=== PATIENT | male | born 1950 | race Caucasian/White ===

== ENCOUNTER 2020-01-27 12:28 | Inpatient (IN) ==
[2020-01-27] MEDS ORDERED: 0.9 % Sodium Chloride 1,000 ML IVC ONE ×2 (12:43→15:42)
[2020-01-27] MEDS ORDERED: Piperacillin/Tazobactam 3.375 GM in 0.9 % Sodium Chloride Mini Bag 100 ML IVPB ONE (12:43)
[2020-01-27] MEDS ORDERED: Isovue-370 500 ML BOTTLE IVP ONE (12:44)
[2020-01-27] MEDS ORDERED: Vancomycin 1,750 MG/517.5 ML IV.SOLN IVPB ONE (13:00)
[2020-01-27 13:21] LABS: Basophils % 0.2 %; Eosinophils # 0.1 K/mcL (0.0-0.6); Eosinophils % 0.3 %; Hematocrit 35.4 % (37.5-50.1); Hemoglobin 11.6 g/dL (12.9-16.9); Immature Granulocytes % 0.9 % (0-4); Lymphocytes # 0.9 K/mcL (0.6-4.6); Lymphocytes % 6.3 %; Mean Corpuscular HGB Conc 32.8 g/dL (31.6-35.5); Mean Corpuscular Hemoglobin 28.1 pg (28.0-33.3); Mean Corpuscular Volume 85.7 fL (83.0-100.0); Mean Platelet Volume 9.4 fL (9.4-12.4); Monocytes # 0.9 K/mcL (0.0-1.3); Monocytes % 6.1 %; Neutrophils # 12.5 K/mcL (1.6-8.9); Platelet Count 321 K/mcL (140-400); Red Blood Count 4.13 M/mcL (4.19-5.50); Red Cell Distribution Width 12.4 % (11.5-14.5); Segmented Neutrophils % 86.2 %; White Blood Count 14.5 K/mcL (4.3-11.1)
[2020-01-27 14:02] LABS: INR 1.4; Prothrombin Time 15.7 Seconds (9.4-12.1)
[2020-01-27 14:04] LABS: Activated Partial Thrombo Time 29.1 Seconds (26.0-36.0)
[2020-01-27 14:21] LABS: BUN/Creatinine Ratio 29 (6-26); Blood Urea Nitrogen 28 mg/dL (8-23); Calcium 9.8 mg/dL (8.6-10.3); Carbon Dioxide 26 mEq/L (23-29); Chloride 98 mEq/L (98-107); Glucose 149 mg/dL (70-105); Osmolality,Calculated 284 (280-300); Potassium 3.8 mEq/L (3.5-5.1); Sodium 133 mEq/L (136-145); eGFR For African Americans > 60 (> 60); eGFR For Non-African Americans > 60 (> 60)
[2020-01-27 15:21] LABS: C-Reactive Protein 292 mg/L (Less than 10)
[2020-01-27] MEDS ORDERED: Ondansetron 4 MG/2 ML VIAL IVP ONE ×2 (15:43→18:54)
[2020-01-27] MEDS ORDERED: Lidocaine -MPF 2% 2 ML VIAL ONE (17:04)
[2020-01-27] MEDS ORDERED: *HR* Succinylcholine 200 MG/10 ML VIAL IVP ONE (17:04)
[2020-01-27] MEDS ORDERED: *HR* FentaNYL (PF) 100 MCG/2 ML VIAL ONE ×3 (17:05→19:26)
[2020-01-27] MEDS ORDERED: *HR* Propofol 200 MG/20 ML VIAL IVP ONE (17:06)
[2020-01-27] MEDS ORDERED: *HR* Rocuronium Bromide 50 MG/5 ML VIAL ONE (17:07)
[2020-01-27] MEDS ORDERED: Ondansetron 4 MG/2 ML VIAL ONE ×2 (17:07→18:37)
[2020-01-27] MEDS ORDERED: Dexamethasone 4 MG/ML VIAL ONE (17:07)
[2020-01-27] MEDS ORDERED: *HR* Midazolam HCl 2 MG/2 ML VIAL ONE (17:48)
[2020-01-27] MEDS ORDERED: *HR* HYDROMORPHONE 2 MG/ML VIAL ONE (17:59)
[2020-01-27] MEDS ORDERED: Acetaminophen IV 1,000 MG/100 ML BAG ONE (18:21)
[2020-01-27] MEDS ORDERED: *HR* FentaNYL (PF) 100 MCG/2 ML VIAL IVP PRN (18:54)
[2020-01-27] MEDS ORDERED: *HR* Promethazine 25 MG/ML VIAL IVP PRN (18:54)
[2020-01-27] MEDS ORDERED: *HR* OxyCODONE Immed Rel 5 MG TABLET PO PRN ×2 (18:54→20:15)
[2020-01-27] MEDS ORDERED: *HR* Labetalol 20 MG/4 ML SYRINGE IVP ONE ×3 (18:55→20:43)
[2020-01-27] MEDS: *HR* Labetalol 20 MG/4 ML SYRINGE IVP PRN ×2 (18:57→19:12)
[2020-01-27] MEDS ORDERED: *HR* HYDROcodone/Acet 5/325 mg TABLET PO PRN (20:15)
[2020-01-27] MEDS ORDERED: Acetaminophen 325 MG TABLET PO PRN (20:51)
[2020-01-27] MEDS ORDERED: Vancomycin 1,750 MG in 0.9 % Sodium Chloride 250 ML IVPB SCH (21:00)
[2020-01-27] MEDS ORDERED: *HR* Labetalol 20 MG/4 ML SYRINGE IVP PRN (21:05)
[2020-01-27] MEDS ORDERED: cloNIDine HCL 0.1 MG TABLET ONE ×2 (22:42→22:43)
[2020-01-27] MEDS: cloNIDine HCL 0.1 MG TABLET PO SCH (22:43)
[2020-01-27] MEDS: *HR* OxyCODONE Immed Rel 5 MG TABLET PO PRN (23:02)
[2020-01-28] MEDS: Piperacillin/Tazobactam 3.375 GM in 0.9 % Sodium Chloride Mini Bag 100 ML IVPB SCH ×2 (00:19→10:09)
[2020-01-28] MEDS: Vancomycin 1,500 MG/265 ML IV.SOLN IVPB SCH ×2 (02:13→15:53)
[2020-01-28] MEDS: amLODIPine 5 MG TABLET PO SCH ×2 (02:47→10:09)
[2020-01-28] MEDS: *HR* OxyCODONE Immed Rel 5 MG TABLET PO PRN ×4 (03:42→19:01)
[2020-01-28] MEDS: *HR* Enoxaparin 40 MG/0.4 ML SYRINGE SQ SCH (05:22)
[2020-01-28 07:02] LABS: Hematocrit 36.3 % (37.5-50.1); Hemoglobin 11.7 g/dL (12.9-16.9); Mean Corpuscular HGB Conc 32.2 g/dL (31.6-35.5); Mean Corpuscular Hemoglobin 28.9 pg (28.0-33.3); Mean Corpuscular Volume 89.6 fL (83.0-100.0); Mean Platelet Volume 9.8 fL (9.4-12.4); Platelet Count 303 K/mcL (140-400); Red Blood Count 4.05 M/mcL (4.19-5.50); Red Cell Distribution Width 12.3 % (11.5-14.5)
[2020-01-28 07:25] LABS: BUN/Creatinine Ratio 25 (6-26); Blood Urea Nitrogen 27 mg/dL (8-23); Calcium 9.1 mg/dL (8.6-10.3); Carbon Dioxide 24 mEq/L (23-29); Chloride 99 mEq/L (98-107); Glucose 243 mg/dL (70-105); Osmolality,Calculated 289 (280-300); Potassium 4.2 mEq/L (3.5-5.1); Sodium 133 mEq/L (136-145); eGFR For African Americans > 60 (> 60); eGFR For Non-African Americans > 60 (> 60)
[2020-01-28] MEDS ORDERED: amLODIPine 5 MG TABLET PO SCH (09:00)
[2020-01-28] MEDS ORDERED: hydrALAZINE 25 MG TABLET PO SCH (09:00)
[2020-01-28] MEDS ORDERED: Furosemide 20 MG TABLET PO SCH (09:00)
[2020-01-28] MEDS: Gabapentin 300 MG CAPSULE PO SCH (10:05)
[2020-01-28] MEDS: Aspirin Enteric Coated 81 MG Tablet PO SCH (10:06)
[2020-01-28] MEDS: cloNIDine HCL 0.1 MG TABLET PO SCH ×2 (10:07→19:59)
[2020-01-28] MEDS: hydroCHLOROthiazide 25 MG TABLET PO SCH (10:07)
[2020-01-28 13:58] LABS: Acinetobacter baumannii by PCR Not Detected (Not Detect); Enterobacteriaceae by PCR Not Detected (Not Detect); Enterococcus by PCR Not Detected (Not Detect); Staphylococcus aureus by PCR DETECTED (Not Detect); Staphylococcus by PCR Not Detected (Not Detect); Streptococcus agalactiae(B)PCR Not Detected (Not Detect); Streptococcus by PCR Not Detected (Not Detect); Streptococcus pneumoniae PCR Not Detected (Not Detect); Streptococcus pyogenes (A) PCR Not Detected (Not Detect); blaKPC Carbapenem-Resist Gene Not Detected (Not Detect); mecA Methicillin-Resist Gene Not Detected (Not Detect); vanA/B Vancomycin-Resist Genes Not Detected (Not Detect)
[2020-01-28 13:59] LABS: Candida albicans by PCR Not Detected (Not Detect); Candida glabrata by PCR Not Detected (Not Detect); Candida krusei by PCR Not Detected (Not Detect); Candida parapsilosis by PCR Not Detected (Not Detect); Candida tropicalis by PCR Not Detected (Not Detect); Enterobacter cloacae Cmplx PCR Not Detected (Not Detect); Escherichia coli by PCR Not Detected (Not Detect); Klebsiella oxytoca by PCR Not Detected (Not Detect); Klebsiella pneumoniae by PCR Not Detected (Not Detect); Proteus by PCR Not Detected (Not Detect); Pseudomonas aeruginosa by PCR Not Detected (Not Detect); Serratia marcescens by PCR Not Detected (Not Detect)
[2020-01-28] MEDS: hydrALAZINE 25 MG TABLET PO SCH ×2 (14:49→20:00)
[2020-01-29] MEDS: *HR* OxyCODONE Immed Rel 5 MG TABLET PO PRN ×5 (00:19→21:19)
[2020-01-29 02:05] LABS: Basophils % 0.2 %; Eosinophils # 0.2 K/mcL (0.0-0.6); Eosinophils % 1.9 %; Hematocrit 34.1 % (37.5-50.1); Hemoglobin 10.7 g/dL (12.9-16.9); Immature Granulocytes % 0.6 % (0-4); Lymphocytes # 1.4 K/mcL (0.6-4.6); Lymphocytes % 10.6 %; Mean Corpuscular HGB Conc 31.4 g/dL (31.6-35.5); Mean Corpuscular Hemoglobin 27.7 pg (28.0-33.3); Mean Corpuscular Volume 88.3 fL (83.0-100.0); Mean Platelet Volume 9.7 fL (9.4-12.4); Monocytes # 0.8 K/mcL (0.0-1.3); Monocytes % 6.2 %; Neutrophils # 10.4 K/mcL (1.6-8.9); Platelet Count 323 K/mcL (140-400); Red Blood Count 3.86 M/mcL (4.19-5.50); Red Cell Distribution Width 12.4 % (11.5-14.5); Segmented Neutrophils % 80.5 %; White Blood Count 12.9 K/mcL (4.3-11.1)
[2020-01-29 02:23] LABS: BUN/Creatinine Ratio 34 (6-26); Blood Urea Nitrogen 34 mg/dL (8-23); Calcium 9.1 mg/dL (8.6-10.3); Carbon Dioxide 27 mEq/L (23-29); Chloride 101 mEq/L (98-107); Glucose 134 mg/dL (70-105); Osmolality,Calculated 290 (280-300); Potassium 3.9 mEq/L (3.5-5.1); Sodium 135 mEq/L (136-145); eGFR For African Americans > 60 (> 60); eGFR For Non-African Americans > 60 (> 60)
[2020-01-29 03:06] LABS: Vancomycin,Trough 14 mcg/mL (5-10)
[2020-01-29] MEDS: Vancomycin 1,500 MG/265 ML IV.SOLN IVPB SCH ×2 (03:49→16:57)
[2020-01-29] MEDS: *HR* Enoxaparin 40 MG/0.4 ML SYRINGE SQ SCH (05:17)
[2020-01-29] MEDS ORDERED: UBIDECARENONE PO SCH (09:00)
[2020-01-29] MEDS ORDERED: Aspirin Enteric Coated 81 MG Tablet PO SCH (09:00)
[2020-01-29] MEDS: hydroCHLOROthiazide 25 MG TABLET PO SCH (09:50)
[2020-01-29] MEDS: cloNIDine HCL 0.1 MG TABLET PO SCH ×2 (09:50→21:18)
[2020-01-29] MEDS: Aspirin Enteric Coated 81 MG Tablet PO SCH (09:50)
[2020-01-29] MEDS: Spironolactone 25 MG TABLET PO SCH (09:51)
[2020-01-29] MEDS: amLODIPine 5 MG TABLET PO SCH (09:51)
[2020-01-29] MEDS: Loratadine 10 MG TABLET PO SCH (09:51)
[2020-01-29] MEDS: Gabapentin 300 MG CAPSULE PO SCH (09:51)
[2020-01-29] MEDS: hydrALAZINE 25 MG TABLET PO SCH ×3 (10:03→21:27)
[2020-01-29] MEDS ORDERED: *HR* FentaNYL (PF) 100 MCG/2 ML VIAL IVP ONE (10:10)
[2020-01-29] MEDS ORDERED: *HR* FentaNYL (PF) 100 MCG/2 ML VIAL IVP PRN (14:00)
[2020-01-29] MEDS ORDERED: *HR* Labetalol 20 MG/4 ML SYRINGE IVP PRN (14:00)
[2020-01-29 15:39] LABS: Creatine Kinase 110 Units/L (30-223)
[2020-01-29] MEDS ORDERED: CeFAZolin 2 GM/120 ML BAG IVPB SCH (16:00)
[2020-01-29 16:55] LABS: C-Reactive Protein 179 mg/L (Less than 10)
[2020-01-29 16:55] LABS: Basophils % 0.2 %; Eosinophils # 0.3 K/mcL (0.0-0.6); Eosinophils % 2.4 %; Hematocrit 37.9 % (37.5-50.1); Immature Granulocytes % 0.4 % (0-4); Lymphocytes # 0.9 K/mcL (0.6-4.6); Lymphocytes % 7.7 %; Mean Corpuscular HGB Conc 31.7 g/dL (31.6-35.5); Mean Corpuscular Hemoglobin 27.8 pg (28.0-33.3); Mean Corpuscular Volume 87.7 fL (83.0-100.0); Mean Platelet Volume 9.6 fL (9.4-12.4); Monocytes # 0.8 K/mcL (0.0-1.3); Monocytes % 7.3 %; Neutrophils # 9.3 K/mcL (1.6-8.9); Platelet Count 369 K/mcL (140-400); Red Blood Count 4.32 M/mcL (4.19-5.50); Red Cell Distribution Width 12.4 % (11.5-14.5); White Blood Count 11.4 K/mcL (4.3-11.1)
[2020-01-29] MEDS: Clindamycin 600 MG/50 ML 600 MG/50 ML IV.SOLN IVPB SCH (16:57)
[2020-01-29] MEDS: Piperacillin/Tazobactam 3.375 GM in 0.9 % Sodium Chloride Mini Bag 100 ML IVPB SCH (16:57)
[2020-01-30] MEDS: *HR* Meperidine 25 MG/ML SYRINGE IVP PRN ×2 (00:44→04:53)
[2020-01-30] MEDS: Piperacillin/Tazobactam 3.375 GM in 0.9 % Sodium Chloride Mini Bag 100 ML IVPB SCH ×4 (00:45→23:40)
[2020-01-30] MEDS: Clindamycin 600 MG/50 ML 600 MG/50 ML IV.SOLN IVPB SCH ×4 (00:45→23:41)
[2020-01-30] MEDS: *HR* OxyCODONE Immed Rel 5 MG TABLET PO PRN ×4 (02:13→19:59)
[2020-01-30] MEDS: Vancomycin 1,500 MG/265 ML IV.SOLN IVPB SCH ×2 (04:51→16:02)
[2020-01-30] MEDS: *HR* Enoxaparin 40 MG/0.4 ML SYRINGE SQ SCH (04:55)
[2020-01-30 06:04] LABS: Basophils % 0.3 %; Eosinophils # 0.2 K/mcL (0.0-0.6); Eosinophils % 1.9 %; Hematocrit 33.4 % (37.5-50.1); Hemoglobin 10.6 g/dL (12.9-16.9); Immature Granulocytes % 0.9 % (0-4); Lymphocytes # 1.1 K/mcL (0.6-4.6); Lymphocytes % 9.7 %; Mean Corpuscular HGB Conc 31.7 g/dL (31.6-35.5); Mean Corpuscular Hemoglobin 27.7 pg (28.0-33.3); Mean Corpuscular Volume 87.2 fL (83.0-100.0); Mean Platelet Volume 9.2 fL (9.4-12.4); Monocytes # 1.1 K/mcL (0.0-1.3); Neutrophils # 9.1 K/mcL (1.6-8.9); Platelet Count 324 K/mcL (140-400); Red Blood Count 3.83 M/mcL (4.19-5.50); Red Cell Distribution Width 12.4 % (11.5-14.5); Segmented Neutrophils % 78.2 %; White Blood Count 11.6 K/mcL (4.3-11.1)
[2020-01-30 06:22] LABS: BUN/Creatinine Ratio 26 (6-26); Blood Urea Nitrogen 27 mg/dL (8-23); Carbon Dioxide 28 mEq/L (23-29); Chloride 100 mEq/L (98-107); Glucose 127 mg/dL (70-105); Osmolality,Calculated 287 (280-300); Sodium 135 mEq/L (136-145); eGFR For African Americans > 60 (> 60); eGFR For Non-African Americans > 60 (> 60)
[2020-01-30] MEDS: Spironolactone 25 MG TABLET PO SCH (08:21)
[2020-01-30] MEDS: Gabapentin 300 MG CAPSULE PO SCH (08:21)
[2020-01-30] MEDS: hydroCHLOROthiazide 25 MG TABLET PO SCH (08:22)
[2020-01-30] MEDS: Loratadine 10 MG TABLET PO SCH (08:22)
[2020-01-30] MEDS: amLODIPine 5 MG TABLET PO SCH (08:22)
[2020-01-30] MEDS: Aspirin Enteric Coated 81 MG Tablet PO SCH (08:22)
[2020-01-30] MEDS: cloNIDine HCL 0.1 MG TABLET PO SCH ×2 (08:22→20:00)
[2020-01-30] MEDS: hydrALAZINE 25 MG TABLET PO SCH ×3 (08:43→22:39)
[2020-01-30] MEDS ORDERED: *HR* FentaNYL (PF) 100 MCG/2 ML VIAL ONE (10:04)
[2020-01-30] MEDS ORDERED: *HR* Propofol 200 MG/20 ML VIAL IVP ONE (10:05)
[2020-01-30] MEDS ORDERED: Lidocaine -MPF 2% 2 ML VIAL ONE (11:00)
[2020-01-30] MEDS ORDERED: *HR* Midazolam HCl 2 MG/2 ML VIAL ONE (11:00)
[2020-01-30] MEDS ORDERED: Ondansetron 4 MG/2 ML VIAL ONE (11:00)
[2020-01-30] MEDS ORDERED: *HR* OxyCODONE Immed Rel 5 MG TABLET PO PRN ×2 (11:04→13:15)
[2020-01-30] MEDS ORDERED: *HR* FentaNYL (PF) 100 MCG/2 ML VIAL IVP PRN ×2 (11:04→13:15)
[2020-01-30] MEDS ORDERED: *HR* Labetalol 20 MG/4 ML SYRINGE IVP PRN ×3 (11:05→13:15)
[2020-01-30] MEDS ORDERED: Ondansetron 4 MG/2 ML VIAL IVP ONE ×2 (11:05→13:15)
[2020-01-30] MEDS ORDERED: Famotidine 20 MG/2 ML VIAL ONE (11:07)
[2020-01-30] MEDS ORDERED: Acetaminophen IV 1,000 MG/100 ML BAG ONE (11:07)
[2020-01-30] MEDS ORDERED: *HR* Succinylcholine 200 MG/10 ML VIAL IVP ONE (11:26)
[2020-01-30] MEDS ORDERED: Acetaminophen IV 1,000 MG/100 ML BAG IVPB ONE (11:59)
[2020-01-31] MEDS: *HR* OxyCODONE Immed Rel 5 MG TABLET PO PRN ×5 (00:23→23:47)
[2020-01-31] MEDS: *HR* Meperidine 25 MG/ML SYRINGE IVP PRN ×3 (04:18→14:14)
[2020-01-31] MEDS: Vancomycin 1,500 MG/265 ML IV.SOLN IVPB SCH ×2 (04:31→16:07)
[2020-01-31] MEDS: *HR* Enoxaparin 40 MG/0.4 ML SYRINGE SQ SCH (05:23)
[2020-01-31] MEDS: Loratadine 10 MG TABLET PO SCH (09:06)
[2020-01-31] MEDS: Spironolactone 25 MG TABLET PO SCH (09:07)
[2020-01-31] MEDS: amLODIPine 5 MG TABLET PO SCH (09:07)
[2020-01-31] MEDS: Gabapentin 300 MG CAPSULE PO SCH (09:08)
[2020-01-31] MEDS: cloNIDine HCL 0.1 MG TABLET PO SCH ×2 (09:09→19:28)
[2020-01-31] MEDS: hydroCHLOROthiazide 25 MG TABLET PO SCH (09:10)
[2020-01-31] MEDS: Aspirin Enteric Coated 81 MG Tablet PO SCH (09:10)
[2020-01-31] MEDS: Piperacillin/Tazobactam 3.375 GM in 0.9 % Sodium Chloride Mini Bag 100 ML IVPB SCH ×3 (09:15→23:49)
[2020-01-31] MEDS: Clindamycin 600 MG/50 ML 600 MG/50 ML IV.SOLN IVPB SCH (09:16)
[2020-01-31] MEDS: hydrALAZINE 25 MG TABLET PO SCH ×3 (09:53→19:28)
[2020-01-31] MEDS ORDERED: Aminoglycoside Consult 1 EACH MC ONE (12:59)
[2020-01-31] MEDS ORDERED: Perflutren Lipid Microsphere 1.3 ML in 0.9 % Sodium Chloride 8.7 ML IVP PRN (15:09)
[2020-02-01] MEDS: *HR* Meperidine 25 MG/ML SYRINGE IVP PRN ×4 (02:38→20:53)
[2020-02-01 03:02] LABS: Basophils % 0.2 %; Eosinophils # 0.4 K/mcL (0.0-0.6); Eosinophils % 3.9 %; Hematocrit 31.4 % (37.5-50.1); Hemoglobin 10.2 g/dL (12.9-16.9); Immature Granulocytes % 0.7 % (0-4); Lymphocytes # 1.3 K/mcL (0.6-4.6); Lymphocytes % 13.6 %; Mean Corpuscular HGB Conc 32.5 g/dL (31.6-35.5); Mean Corpuscular Hemoglobin 28.8 pg (28.0-33.3); Mean Corpuscular Volume 88.7 fL (83.0-100.0); Mean Platelet Volume 9.2 fL (9.4-12.4); Monocytes # 0.8 K/mcL (0.0-1.3); Monocytes % 8.6 %; Platelet Count 298 K/mcL (140-400); Red Blood Count 3.54 M/mcL (4.19-5.50); Red Cell Distribution Width 11.9 % (11.5-14.5); White Blood Count 9.5 K/mcL (4.3-11.1)
[2020-02-01 03:23] LABS: BUN/Creatinine Ratio 22 (6-26); Blood Urea Nitrogen 23 mg/dL (8-23); Carbon Dioxide 31 mEq/L (23-29); Chloride 96 mEq/L (98-107); Glucose 133 mg/dL (70-105); Osmolality,Calculated 286 (280-300); Potassium 3.7 mEq/L (3.5-5.1); Sodium 135 mEq/L (136-145); eGFR For African Americans > 60 (> 60); eGFR For Non-African Americans > 60 (> 60)
[2020-02-01] MEDS: *HR* OxyCODONE Immed Rel 5 MG TABLET PO PRN ×4 (03:59→22:54)
[2020-02-01] MEDS: Vancomycin 1,500 MG/265 ML IV.SOLN IVPB SCH ×2 (03:59→16:10)
[2020-02-01] MEDS: *HR* Enoxaparin 40 MG/0.4 ML SYRINGE SQ SCH (05:54)
[2020-02-01] MEDS: Gabapentin 300 MG CAPSULE PO SCH (09:36)
[2020-02-01] MEDS: Aspirin Enteric Coated 81 MG Tablet PO SCH (09:36)
[2020-02-01] MEDS: Spironolactone 25 MG TABLET PO SCH (09:36)
[2020-02-01] MEDS: amLODIPine 5 MG TABLET PO SCH (09:36)
[2020-02-01] MEDS: cloNIDine HCL 0.1 MG TABLET PO SCH ×2 (09:36→20:37)
[2020-02-01] MEDS: hydroCHLOROthiazide 25 MG TABLET PO SCH (09:37)
[2020-02-01] MEDS: Piperacillin/Tazobactam 3.375 GM in 0.9 % Sodium Chloride Mini Bag 100 ML IVPB SCH ×2 (09:37→16:11)
[2020-02-01] MEDS: Loratadine 10 MG TABLET PO SCH (09:37)
[2020-02-01] MEDS: hydrALAZINE 25 MG TABLET PO SCH ×3 (09:42→20:38)
[2020-02-01] MEDS: CeFAZolin 2 GM/120 ML BAG IVPB SCH (22:57)
[2020-02-02] MEDS: *HR* Meperidine 25 MG/ML SYRINGE IVP PRN ×4 (02:24→23:54)
[2020-02-02 02:49] LABS: Basophils % 0.2 %; Eosinophils # 0.4 K/mcL (0.0-0.6); Eosinophils % 3.4 %; Hematocrit 31.2 % (37.5-50.1); Hemoglobin 10.2 g/dL (12.9-16.9); Immature Granulocytes % 0.6 % (0-4); Lymphocytes # 1.2 K/mcL (0.6-4.6); Lymphocytes % 11.3 %; Mean Corpuscular HGB Conc 32.7 g/dL (31.6-35.5); Mean Corpuscular Hemoglobin 28.7 pg (28.0-33.3); Mean Corpuscular Volume 87.9 fL (83.0-100.0); Mean Platelet Volume 9.3 fL (9.4-12.4); Monocytes # 0.8 K/mcL (0.0-1.3); Monocytes % 7.9 %; Neutrophils # 7.9 K/mcL (1.6-8.9); Platelet Count 322 K/mcL (140-400); Red Blood Count 3.55 M/mcL (4.19-5.50); Red Cell Distribution Width 11.9 % (11.5-14.5); Segmented Neutrophils % 76.6 %; White Blood Count 10.3 K/mcL (4.3-11.1)
[2020-02-02 03:07] LABS: BUN/Creatinine Ratio 23 (6-26); Blood Urea Nitrogen 23 mg/dL (8-23); Calcium 9.1 mg/dL (8.6-10.3); Carbon Dioxide 30 mEq/L (23-29); Chloride 97 mEq/L (98-107); Glucose 107 mg/dL (70-105); Osmolality,Calculated 280 (280-300); Potassium 3.7 mEq/L (3.5-5.1); Sodium 133 mEq/L (136-145); eGFR For African Americans > 60 (> 60); eGFR For Non-African Americans > 60 (> 60)
[2020-02-02] MEDS: *HR* OxyCODONE Immed Rel 5 MG TABLET PO PRN (05:52)
[2020-02-02] MEDS: *HR* Enoxaparin 40 MG/0.4 ML SYRINGE SQ SCH (05:53)
[2020-02-02] MEDS: CeFAZolin 2 GM/120 ML BAG IVPB SCH ×3 (08:16→23:18)
[2020-02-02] MEDS: Spironolactone 25 MG TABLET PO SCH (08:16)
[2020-02-02] MEDS: Aspirin Enteric Coated 81 MG Tablet PO SCH (08:16)
[2020-02-02] MEDS: cloNIDine HCL 0.1 MG TABLET PO SCH ×2 (08:16→20:01)
[2020-02-02] MEDS: Gabapentin 300 MG CAPSULE PO SCH (08:17)
[2020-02-02] MEDS: Loratadine 10 MG TABLET PO SCH (08:17)
[2020-02-02] MEDS: amLODIPine 5 MG TABLET PO SCH (08:18)
[2020-02-02] MEDS: hydrALAZINE 25 MG TABLET PO SCH ×3 (08:27→20:04)
[2020-02-02] MEDS ORDERED: *HR* OxyCODONE Immed Rel 5 MG TABLET PO PRN (10:33)
[2020-02-02] MEDS ORDERED: *HR* OxyCODONE ER (12 HR) 20 MG TABLET PO SCH ×2 (12:00→18:00)
[2020-02-02] MEDS: *HR* OxyCODONE Immed Rel 15 MG TABLET PO PRN (16:54)
[2020-02-02] MEDS: *HR* OxyCODONE ER (12 HR) 20 MG TABLET PO SCH (20:01)
[2020-02-03] MEDS: *HR* OxyCODONE Immed Rel 15 MG TABLET PO PRN ×2 (01:37→11:55)
[2020-02-03 04:35] LABS: Basophils % 0.2 %; Eosinophils # 0.2 K/mcL (0.0-0.6); Eosinophils % 2.8 %; Hematocrit 30.7 % (37.5-50.1); Hemoglobin 9.9 g/dL (12.9-16.9); Immature Granulocytes % 0.7 % (0-4); Lymphocytes # 1.2 K/mcL (0.6-4.6); Mean Corpuscular HGB Conc 32.2 g/dL (31.6-35.5); Mean Platelet Volume 9.2 fL (9.4-12.4); Monocytes # 0.8 K/mcL (0.0-1.3); Monocytes % 9.5 %; Neutrophils # 6.3 K/mcL (1.6-8.9); Platelet Count 297 K/mcL (140-400); Red Blood Count 3.53 M/mcL (4.19-5.50); Red Cell Distribution Width 11.9 % (11.5-14.5); Segmented Neutrophils % 72.8 %; White Blood Count 8.7 K/mcL (4.3-11.1)
[2020-02-03 04:53] LABS: BUN/Creatinine Ratio 23 (6-26); Blood Urea Nitrogen 23 mg/dL (8-23); Calcium 9.1 mg/dL (8.6-10.3); Carbon Dioxide 27 mEq/L (23-29); Chloride 98 mEq/L (98-107); Glucose 114 mg/dL (70-105); Osmolality,Calculated 281 (280-300); Potassium 3.7 mEq/L (3.5-5.1); Sodium 133 mEq/L (136-145); eGFR For African Americans > 60 (> 60); eGFR For Non-African Americans > 60 (> 60)
[2020-02-03] MEDS: *HR* Meperidine 25 MG/ML SYRINGE IVP PRN (05:55)
[2020-02-03] MEDS: *HR* Enoxaparin 40 MG/0.4 ML SYRINGE SQ SCH (05:59)
[2020-02-03] MEDS: amLODIPine 5 MG TABLET PO SCH ×2 (08:41→11:34)
[2020-02-03] MEDS: *HR* OxyCODONE ER (12 HR) 20 MG TABLET PO SCH ×2 (08:43→20:21)
[2020-02-03] MEDS: Spironolactone 25 MG TABLET PO SCH (08:44)
[2020-02-03] MEDS: Gabapentin 300 MG CAPSULE PO SCH (08:48)
[2020-02-03] MEDS: Loratadine 10 MG TABLET PO SCH (08:49)
[2020-02-03] MEDS: Aspirin Enteric Coated 81 MG Tablet PO SCH (08:51)
[2020-02-03] MEDS: cloNIDine HCL 0.1 MG TABLET PO SCH ×2 (08:51→20:21)
[2020-02-03] MEDS: CeFAZolin 2 GM/120 ML BAG IVPB SCH ×3 (09:05→23:12)
[2020-02-03] MEDS: hydrALAZINE 25 MG TABLET PO SCH ×3 (09:19→20:24)
[2020-02-03] MEDS: hydroCHLOROthiazide 25 MG TABLET PO SCH (12:01)
[2020-02-04] MEDS: *HR* OxyCODONE Immed Rel 15 MG TABLET PO PRN ×2 (00:49→12:09)
[2020-02-04 03:28] LABS: Basophils % 0.1 %; Eosinophils # 0.3 K/mcL (0.0-0.6); Eosinophils % 3.4 %; Hematocrit 29.3 % (37.5-50.1); Hemoglobin 9.5 g/dL (12.9-16.9); Immature Granulocytes % 0.4 % (0-4); Lymphocytes % 13.3 %; Mean Corpuscular HGB Conc 32.4 g/dL (31.6-35.5); Mean Corpuscular Hemoglobin 28.6 pg (28.0-33.3); Mean Corpuscular Volume 88.3 fL (83.0-100.0); Mean Platelet Volume 9.4 fL (9.4-12.4); Monocytes # 0.7 K/mcL (0.0-1.3); Monocytes % 9.7 %; Neutrophils # 5.3 K/mcL (1.6-8.9); Platelet Count 277 K/mcL (140-400); Red Blood Count 3.32 M/mcL (4.19-5.50); Red Cell Distribution Width 11.9 % (11.5-14.5); Segmented Neutrophils % 73.1 %; White Blood Count 7.3 K/mcL (4.3-11.1)
[2020-02-04 03:47] LABS: BUN/Creatinine Ratio 22 (6-26); Blood Urea Nitrogen 20 mg/dL (8-23); Calcium 9.3 mg/dL (8.6-10.3); Carbon Dioxide 29 mEq/L (23-29); Chloride 97 mEq/L (98-107); Glucose 117 mg/dL (70-105); Osmolality,Calculated 282 (280-300); Potassium 3.7 mEq/L (3.5-5.1); Sodium 134 mEq/L (136-145); eGFR For African Americans > 60 (> 60); eGFR For Non-African Americans > 60 (> 60)
[2020-02-04] MEDS: *HR* Enoxaparin 40 MG/0.4 ML SYRINGE SQ SCH (05:14)
[2020-02-04] MEDS ORDERED: tiZANidine 4 MG TABLET PO PRN (05:20)
[2020-02-04] MEDS: cloNIDine HCL 0.1 MG TABLET PO SCH (09:08)
[2020-02-04] MEDS: Aspirin Enteric Coated 81 MG Tablet PO SCH (09:08)
[2020-02-04] MEDS: Gabapentin 300 MG CAPSULE PO SCH (09:08)
[2020-02-04] MEDS: Spironolactone 25 MG TABLET PO SCH (09:08)
[2020-02-04] MEDS: amLODIPine 5 MG TABLET PO SCH (09:09)
[2020-02-04] MEDS: *HR* OxyCODONE ER (12 HR) 20 MG TABLET PO SCH (09:09)
[2020-02-04] MEDS: Loratadine 10 MG TABLET PO SCH (09:09)
[2020-02-04] MEDS: hydrALAZINE 25 MG TABLET PO SCH (09:14)
[2020-02-04] MEDS: hydroCHLOROthiazide 25 MG TABLET PO SCH (09:14)
[2020-02-04] MEDS: CeFAZolin 2 GM/120 ML BAG IVPB SCH (09:14)
[2020-02-04 10:11] VITALS: BP 189/70
[2020-02-04] MEDS ORDERED: hydrALAZINE 25 MG TABLET PO SCH (15:00)
[2020-02-04] MEDS ORDERED: carvediloL 6.25 MG TABLET PO SCH (17:00)
== END 2020-02-04 13:00 | disposition other institution (70) | DRG 854 ==
LOC: EMEROOARM 12:28 → 3NENU 16:51 → SUATTDRO 16:51 → 3NENU 17:09
PROVIDERS: ADMIT Internal Medicine; ATTEND Student in an Organized Health Care Education/Training Program